=== PATIENT | male | born 1995 | race Caucasian/White ===

== ENCOUNTER 2022-05-20 16:55 | Emergency (ER) | payer SELFPAY ==
[~2022-05-20] VITALS: Ht 170 cm; Wt 83.0 kg
[~2022-05-20 16:55] MED LIST: ALBU8.5H6 IH; AZIT250T PO; BENZ100C18 PO; PRD20T PO
[2022-05-20 17:05] VITALS: BP 161/95
[2022-05-20] MEDS ORDERED: diphenhydrAMINE 50 MG/ML INJ (BENADRYL) IVP ONE (18:15)
[2022-05-20] MEDS ORDERED: KETOROLAC 15 MG/ML VIAL IVP ONE (18:15)
[2022-05-20] MEDS ORDERED: PROCHLORPERAZINE 10 MG/2ML INJ (COMPAZINE) IV ONE (18:15)
--- NOTE | 2022-05-20 19:09 | Diagnostic Imaging Report ---
INDICATION: Left eye pressure and pain. TECHNIQUE: Multiple contiguous axial images were obtained through the facial bones without the use of intravenous contrast. Auto Exposure Controls were utilized during the CT exam to meet ALARA standards for radiation dose reduction. There are no prior CT orbits for comparison. The orbital contents appear unremarkable with symmetric appearance of the globes and optic nerves and extraocular muscles. There is no bony erosive process. There is fairly extensive mucosal thickening and fluid in the left frontal sinus. The right frontal sinus is clear. There is partial opacification throughout the left ethmoid air cells anteriorly. There is a small amount of fluid and mucosal thickening in the left sphenoid sinus. There is near complete opacification of the left maxillary sinus. There is prominent mucosal thickening right maxillary sinus with a small amount of fluid. Ostiomeatal complexes are obstructed on both sides. IMPRESSION: No intraorbital findings. Extensive pansinusitis as described above. Dictated by: Dictated on workstation # [id number]
--- NOTE | 2022-05-20 19:22 | ED EENT ---
History of Present Illness General Chief Complaint: Eye Problems Stated Complaint: LEFT EYE PRESSURE Nursing Triage Note: PT AMB TO TRIAGE. PT CO OF L EYE PRESSURE AND PAIN, RATES PAIN 8/10 AND STATES FEELS SURGING. DENIES EYE INJURY AT THIS X. PT STATES HAS BEEN HURTING FOR 3 DAYS. DENIES VISUAL CHANGES Source: patient Exam Limitations: no limitations History of Present Illness Date Seen by Provider: May 20, 2022 Time Seen by Provider: 18:00 Initial Comments Patient is a 26-year-old male who presents to the emergency department for evaluation of left eye pressure and pain that has been present for approximately 3 days. Patient states the pain is waxing and waning. He states it is stabbing or electrical in description. Denies any vision change. States he does have some sensitivity to light. Denies any increased pain with range of motion of his eyes. Denies any recent trauma to his eyes. He has not been taking any medications recently for the pain. Denies any worsening with Valsalva or bending forward. Location: eye (L) Allergies and Home Medications Allergies Coded Allergies: milk (Verified Allergy, Unknown, 05/20/22) peanut (Verified Allergy, Unknown, 05/20/22) Patient Home Medication List Home Medication List Reviewed: Yes Albuterol Sulfate (Ventolin Hfa) 8.5 Gm Hfa.aer.ad, 2 PUFF IH Q4H PRN for SHORTNESS OF BREATH Prescribed by: HAJA LENZ on 03/03/16 140 Azithromycin (Zithromax) 250 Mg Tablet, 250 MG PO UD Prescribed by: HAJA LENZ on 03/03/16 140 Benzonatate (Tessalon Perles) 100 Mg Capsule, 1-2 CAP PO Q8H PRN for COUGH Prescribed by: HAJA LENZ on 03/03/16 140 Prednisone (Prednisone) 20 Mg Tab, 40 MG PO DAILY Prescribed by: HAJA LENZ on 03/03/16 140 Review of Systems Review of Systems Constitutional: no symptoms reported Eyes: See HPI, Pain, Photophobia Ears: No Symptoms Reported Nose: no symptoms reported Mouth: no symptoms reported Throat: no symptoms reported Respiratory: no symptoms reported Cardiovascular: no symptoms reported Gastrointestinal: no symptoms reported Musculoskeletal: no symptoms reported Skin: no symptoms reported Neurological: No Symptoms Reported Hematologic/Lymphatic: No Symptoms Reported Past Tfbpctz-Atymbn-Afwixi Hx Patient Social History Tobacco Use?: Yes Tobacco type used: Cigarettes Smoking Status: Current Everyday Smoker Substance use?: Yes Substance type: Marijuana Substance frequency: Daily Alcohol Use?: Yes Alcohol Frequency: Once in a while Pt feels they are or have been: No Immunizations Up To Date Influenza Vaccine Up-to-Date: No; Not Current First/Initial COVID19 Vaccinat: NO Seasonal Allergies Seasonal Allergies: No Past Medical History Surgery/Hospitalization HX: T AND A, TUBES IN EARS Tonsillectomy Reproductive Disorders: No Family Medical History No Pertinent Family Hx Physical Exam Vital Signs Vital Signs - First Documented 05/20/22 17:05 Temp 36.9 Pulse 95 Resp 18 B/P (MAP) 161/95 (117) Pulse Ox 100 Height, Weight, BMI Height: 5'9" Weight: 160lbs. oz. 72.001066sg; 28.00 BMI Method:Stated General Appearance: WD/WN, no apparent distress Neck: non-tender, full range of motion, supple, normal inspection Cardiovascular: regular rate, rhythm Respiratory: chest non-tender, lungs clear, normal breath sounds, no resp iratory distress, no accessory muscle use Gastrointestinal: normal bowel sounds, non tender, soft, no organomegaly, no pulsatile mass Neurologic/Psychiatric: no motor/sensory deficits, alert, normal mood/affect, oriented x 3 Skin: normal color, warm/dry Progress/Results/Core Measures Results/Orders My Orders Orders - SARAH POP APRN Ketorolac Injection (Toradol Injection) (05/20/22 18:15) Prochlorperazine Injection (Compazine In (05/20/22 18:15) Diphenhydramine Injection (Benadryl Inje (05/20/22 18:15) Ct Orbit Wo (05/20/22 18:09) Iv/Invasive Line Insertion .IV INSERT (05/20/22 18:09) Medications Given in ED Vital Signs/I&O Blood Pressure Mean: 117 Progress Progress Note : Progress Note Patient is nontoxic and well-hydrated on exam. No marked abnormality noted on exam of the eye. No proptosis noted to the left eye. Extraocular movements are intact. Pupils are equal round reactive to light bilaterally. Patient does endorse some photophobia. Will obtain CT of the orbits and give headache cocktail to see if symptoms may be related to an ocular migraine. Headache cocktail was given. CT of the orbits was obtained and was noted to be normal. Patient eloped from the emergency department prior to being given these results are being able to be reassessed to see if symptoms have improved. I was unable to speak to the patient prior to him leaving. Patient did not notify staff that he was leaving prior to him eloping from the department. If symptoms were still persistent my plan was to check his ocular pressure with the toco pe n. We would have treated accordingly based on the results and likely had close follow-up with optometry/ophthalmology. These instructions were not able to be given to the patient due to him eloping. Departure Impression Primary Impression: Left eye pain Additional Impression: Left against medical advice Disposition: 07 AGAINST MEDICAL ADVICE Condition: Stable Departure-Patient Inst. Referrals: NO,LOCAL PHYSICIAN (PCP/Family) Primary Care Physician SARAH POP APRN May 20, 2022 19:22
== END 2022-05-20 19:22 | disposition left against medical advice (07) ==
LOC: EDUNIT# 16:55 → ER 16:58
DX: H57.12 Ocular pain, left eye (principal); H53.142 Visual discomfort, left eye; F17.210 Nicotine dependence, cigarettes, uncomplicated
CPT/HCPCS: 70480